=== PATIENT | female | born 1990 | race American Indian/Alaskan Native ===

== ENCOUNTER 2019-05-31 21:24 | Inpatient (IN) | payer MEDICAID ==
--- NOTE | 2019-05-31 21:56 | History and Physical Report ---
History of Present Illness Date of examination: 05/31/19 Date of admission: 05/31/19 21:36 Chief complaint: arrived in active labor, 9cms History of present illness: prev c/s x 2, 2015 and 2017, scheduled for repeat c/s @ [facility] 06/05/19 denies medical problems Surgical hx: c/s 2016 - twins & 2018 - scheduled repeat denies etoh/drugs/smoking pt denies STI or abnormal pap pt has limited records and H&H for surgery - records state HSV2 and GBS + Past History Past Medical History: no pertinent history Past Surgical History: section (x2) INSTRUMENT TECHNOLOGIST History: herpes (denies recent or current outbreak). denies: cancer, chlamydia, fibroids, gonorrhea, hepatitis B, hepatitis C, HIV, syphilis, trichomonas Social history: no significant social history - Obstetrical History Expected Date of Delivery: 06/06/19 Actual Gestation: 39 Week(s) 1 Day(s) : 3 Para: 2 Hx # Term Pregnancies: 1 Number of Pregnancies: 1 Spontaneous Abortions: 0 Induced : 0 Number of Living Children: 3 Review of Systems All systems: negative - Physical Exam Breasts: Positive: normal Cardiovascular: Regular rate Lungs: Positive: Clear to auscultation, Normal air movement Abdomen: Positive: normal appearance, soft Genitourinary (Female): Positive: normal external genitalia (no HSV lesion) Vulva: both: normal Vagina: Positive: normal moisture Results All other labs normal. Assessment and Plan pt arrived to hospital 9cms and pushing, admission orders in EMR. Dr. Bacon made aware - Patient Problems (1) 39 weeks gestation of Current Visit: Yes Status: Acute (2) HSV-2 (herpes simplex virus 2) infection Current Visit: Yes Status: Acute Plan to address problem: no lesion noted (3) Previous section Current Visit: Yes Status: Acute
[2019-05-31] MEDS ORDERED: ACETAMINOPHEN 325 MG TAB PO PRN (21:59)
[2019-05-31] MEDS ORDERED: WITCH HAZEL/ GLYCERIN PAD TP PRN (21:59)
[2019-05-31] MEDS ORDERED: ONDANSETRON 4 MG/2 ML INJ IV PRN (21:59)
[2019-05-31] MEDS ORDERED: MAGNESIUM HYDROXIDE (MOM) ORAL LIQD UDC PO PRN (21:59)
[2019-05-31] MEDS ORDERED: LANOLIN/ZINC/DIMETHICONE (LANSINOH) 7 GM TP PRN (21:59)
[2019-05-31] MEDS ORDERED: BENZOCAINE/MENTHOL 20/0.5% TOP SPRAY 56 GM TP PRN (21:59)
[2019-05-31] MEDS ORDERED: diphenhydrAMINE 25 MG CAP PO PRN (21:59)
[2019-05-31] MEDS ORDERED: PROMETHAZINE 25 MG TAB PO PRN (21:59)
[2019-05-31] MEDS ORDERED: LACTATED RINGERS 1,000 ML IV SCH (22:00)
[2019-05-31] MEDS ORDERED: OXYTOCIN 20 UNIT/1000ML DRIP 20 UNITS/1,000 ML BAG IV SCH ×2 (22:00)
--- NOTE | 2019-05-31 22:05 | Procedure Note ---
OB Delivery Note - Delivery Date of Delivery: 05/31/19 ( ) Coarse Wire Drawer: JEFF MENDOZA Estimated blood loss: 200cc - Vaginal Delivery presentation: vertex Intrapartum events: other(please specify) (prev c/s, unplanned ) Delivery induction: none Delivery monitor: external FHT, external uterine Route of delivery: Delivery placenta: spontaneous Delivery cord: 3 umbilical vessels Episiotomy: none Delivery laceration: none Anesthesia: none Delivery comments: pt spontaneously pushed female out shortly after arrival to hospital. CNCarlita Tiwari present. no lacerations. Placenta del intact and complete. apgars 8/9, weight 6#1oz. fundus firm, lochia scant. VSSAF. mother and infant LDR stable. Dr. Bacon made aware of patient's status. - Infant A at 1 minute: 8 at 5 minutes: 9 Gender: Female (6#1oz)
[2019-05-31] MEDS: IBUPROFEN 800 MG TAB PO SCH (22:24)
[2019-05-31 23:46] LABS: Hematocrit 35.7 % (30.3-42.9); Hemoglobin 11.8 gm/dl (10.1-14.3); Mean Corpuscular HGB Conc 33 % (30-34); Mean Corpuscular Volume 81 fl (79-97); Platelet Count 173 K/mm3 (140-440); Red Blood Count 4.41 M/mm3 (3.65-5.03); Red Cell Distribution Width 15.1 % (13.2-15.2)
--- NOTE | 2019-06-01 06:34 | Progress Note ---
Assessment and Plan pt sleeping No c/o voiced. VSS FF below umb Lochia small Perineum intact. H&H pending. Doing well s/p vag delivery-unintentional after 2 previous c/s P: continue pathway Advance as tolerated. Subjective - Subjective Date of service: 06/01/19 (pt in good spirits) Principal diagnosis: Prev c/s X 2 Day #1 Patient reports: appetite normal, voiding normally, pain well controlled, ambulating normally [place]: doing well Objective - Vital Signs Latest vital signs: Vital Signs Temp Pulse Resp BP Pulse Ox 06/01/19 00:08 98.9 F 78 18 116/70 98 05/31/19 23:24 18 05/31/19 22:43 93 H 125/74 05/31/19 22:28 90 111/73 05/31/19 22:13 98 H 111/63 05/31/19 21:59 87 119/59 05/31/19 21:40 97.8 F Intake and Output 05/31/19 05/31/19 06/01/19 14:59 22:59 06:59 Intake Total 240 Output Total 400 Balance -160 Intake: Oral 240 Output: Urine 400 Void 400 Other: Total, Intake Amount 240 Total, Output Amount 400 # Voids Void 1 Weight 181 lb Estimated Blood Loss 200 Patient Weight 06/01/19 06:59 Weight 181 lb - Exam Breasts: Present: normal Cardiovascular: Present: Regular rate Lungs: Present: Normal air movement Abdomen: Present: normal appearance, soft, normal bowel sounds Uterus: Present: normal, fundal height below umbilicus Extremities: Present: normal Deep Tendon Reflex Grade: Normal +2 Incision: Present: normal, dry, intact - Labs Labs: Abnormal lab results 05/31/19 Range/Units 23:28 WBC 15.1 H (4.5-11.0) K/mm3 MCH 27 L (28-32) pg
[2019-06-01] MEDS: PRENATAL VIT27-FE FUMARATE-FOLIC ACID VIT TAB PO SCH (09:55)
[2019-06-01] MEDS: FERROUS SULFATE 325 MG TAB PO SCH ×2 (09:56→22:11)
[2019-06-01 10:41] LABS: Hematocrit 30.8 % (30.3-42.9); Hemoglobin 10.2 gm/dl (10.1-14.3)
[2019-06-01] MEDS: IBUPROFEN 800 MG TAB PO SCH ×2 (11:10→17:41)
[2019-06-01] MEDS ORDERED: medroxyPROGESTERone ACETATE 150 MG/ML SYRINGE IM ONE (11:12)
[2019-06-02] MEDS: IBUPROFEN 800 MG TAB PO SCH ×2 (05:32→10:32)
[2019-06-02] MEDS ORDERED: TETANUS,DIPH,PERTUSS(ACELL) VACCINE 0.5 ML SYRINGE IM ONE (06:00)
--- NOTE | 2019-06-02 07:45 | Discharge Summary ---
Providers - Providers Date of Admission: 05/31/19 21:36 Date of discharge: 06/02/19 (Pt desires to go home.) Attending physician: BEV LIAO Primary care physician: BEV LIAO Hospitalization Reason for admission: active labor Delivery: Episiotomy: none Laceration: none Other procedures: none complications: none Discharge diagnosis: IUP at term delivered Graham baby: female Hospital course: S:Doing well. Ambulating, passing flatus, and voiding okay. States minimal pain and bleeding. Would like Depo before discharge home, it is ordered. O: VSS, Adequate I&O;s. H/H 10.2/30.8. Minimal bleeding, fundus firm. A: 29 y.o. S/p @ term, walk in pt P: Discharge home with instructions. Follow up with primary care OB in 4 weeks. Condition at discharge: Good Disposition: DC-01 TO HOME OR SELFCARE Plan - Provider Discharge Summary Activity: routine, no sex for 6 weeks, no heavy lifting 4 weeks, no strenuous exercise Diet: routine Instructions: routine Additional instructions: [] Smoking cessation referral if applicable(refer to patient education folder for contact #) [] Refer to [facility]'s [facility] Booklet Call your doctor immediately for: * Fever > 100.5 * Heavy vaginal bleeding ( >1 pad per hour) * Severe persistent headache * Shortness of breath * Reddened, hot, painful area to leg or breast * Drainage or odor from incision. * Keep incision clean and dry at all times and follow doctor's instructions regarding bathing/showering - Follow up plan Follow up: BEV LIAO MD [Primary Care Provider] - 7 Days (Congratulations!!! Please follow up with your primary OB in 4 weeks. If you would like to follow up with [facility] our number [phone].)
[2019-06-02] MEDS: PRENATAL VIT27-FE FUMARATE-FOLIC ACID VIT TAB PO SCH (10:33)
[2019-06-02] MEDS: FERROUS SULFATE 325 MG TAB PO SCH (10:33)
[2019-06-02] MEDS ORDERED: medroxyPROGESTERone ACETATE 150 MG/ML SYRINGE IM SCH (14:30)
[2019-06-02 15:12] VITALS: BP 103/61
== END 2019-06-02 15:00 | disposition home or self-care (01) | DRG 774 ==
LOC: TRG 21:24 → LD 21:36 → OB 06-01 00:26
PROVIDERS: ADMIT Obstetrics & Gynecology; ATTEND Obstetrics & Gynecology
PROC: 10E0XZZ Delivery of Products of Conception, External Approach (ICD-10-PCS; principal; 2019-05-31)
PROC: 3E0234Z Introduction of Serum, Toxoid and Vaccine into Muscle, Percutaneous Approach (ICD-10-PCS; 2019-06-02)
DX: O99.824 Streptococcus B carrier state complicating childbirth (principal); O98.52 Other viral diseases complicating childbirth; B00.9 Herpesviral infection, unspecified; Z3A.39 39 weeks gestation of pregnancy; Z37.0 Single live birth; Z23 Encounter for immunization
CPT/HCPCS: 36415; 85014; 85018; 85027; 86592; 86706; 86762; 86850; 86900; 86901; 87806; 88307; G0378; J1050; J2590

== ENCOUNTER 2021-04-05 05:29 | Inpatient (IN) | payer MEDICAID ==
[2021-04-05] MEDS ORDERED: LIDOCAINE (2%) 20 MG/1 ML VIAL 20 ML MDV INFILTRATI NR (09:22)
[2021-04-05] MEDS ORDERED: ePHEDrine SULFATE 50 MG/1 ML INJ IV PRN (10:00)
[2021-04-05] MEDS ORDERED: NalbUPHINE 10 MG/1 ML INJ IV PRN (10:00)
[2021-04-05] MEDS ORDERED: ACETAMINOPHEN 325 MG TAB PO PRN (10:00)
[2021-04-05] MEDS ORDERED: METHYLERGONOVINE MALEATE 0.2 MG/ML VIAL IM PRN (10:00)
[2021-04-05] MEDS ORDERED: CARBOPROST TROMETHAMINE 250 MCG/1 ML INJ IM PRN (10:00)
[2021-04-05] MEDS ORDERED: miSOPROStol 200 MCG TAB PR PRN (10:00)
[2021-04-05] MEDS ORDERED: TERBUTALINE 1 MG/1 ML INJ SUB-Q PRN (10:00)
[2021-04-05] MEDS ORDERED: PROMETHAZINE 25 MG TAB PO PRN ×2 (10:00→17:43)
[2021-04-05] MEDS ORDERED: LACTATED RINGERS 1,000 ML IV SCH (10:00)
[2021-04-05] MEDS ORDERED: LOPERAMIDE 2 MG CAP PO PRN (10:00)
[2021-04-05] MEDS ORDERED: AMPICILLIN/NS 2 GM/100 ML 2 GM/100 ML BAG IV ONE (10:00)
[2021-04-05] MEDS ORDERED: ONDANSETRON 4 MG/2 ML INJ IV PRN ×2 (10:00→17:43)
[2021-04-05] MEDS ORDERED: fentaNYL 100 MCG/2 ML INJ IV PRN (10:00)
[2021-04-05] MEDS ORDERED: OXYTOCIN DRIP 30 UNITS/500 ML BAG IV SCH ×2 (10:00)
[2021-04-05] MEDS ORDERED: OXYTOCIN 10 UNIT/1 ML INJ IM PRN (10:00)
[2021-04-05 10:02] LABS: Hematocrit 37.8 % (30.3-42.9); Hemoglobin 12.2 gm/dl (10.1-14.3); Mean Corpuscular HGB Conc 32 % (30-34); Mean Corpuscular Volume 80 fl (79-97); Platelet Count 165 K/mm3 (140-440); Red Blood Count 4.74 M/mm3 (3.65-5.03); Red Cell Distribution Width 16.6 % (13.2-15.2)
--- NOTE | 2021-04-05 10:03 | History and Physical Report ---
History of Present Illness Date of examination: 04/05/21 Date of admission: at 39.5wks by LMP c/w U/S. care at [facility]. PT admit to feeling ctx, denies LOF, VB or headache. pt admits to movement. pt states she had a successful after her last c/section and wants TOLAC. Chief complaint: 04/07/21 History of present illness: at 39.5wkw by LMP c/w U/S. care at [facility]. PT c/o contrations, admits to movement. Denies headache, LOF or VB. Desires TOLAC. labs with A positive, neg antibody screen, RPR neg, HepBsAg neg, Rubella immnue, and HIV neg. HSVII neg; GBS+ Past History Past Medical History: other (Alpha thalassemia carrier, headaches) Past Surgical History: section (x2) Social history: no significant social history - Obstetrical History Expected Date of Delivery: 04/07/21 Actual Gestation: 39 Week(s) 5 Day(s) : 4 Hx # Term Pregnancies: 3 (c/s x2 then in 2019) Number of Living Children: 3 Medications and Allergies Allergies Allergy/AdvReac Type Severity Reaction Status Date / Time No Known Allergies Allergy Verified 05/31/19 22:18 Home Medications Medication Instructions Recorded Confirmed Last Taken Type Ferrous Sulfate [Feosol] 325 mg PO BID 05/31/19 04/05/21 04/04/21 10:00 History Vit-Fe Fumar-FA [ 1 tab PO QDAY 05/31/19 04/05/21 04/04/21 20:00 History Vitamin] Acyclovir 1 tab PO BID 04/05/21 04/05/21 04/04/21 20:00 History Active Meds: Active Medications Acetaminophen (Acetaminophen 325 Mg Tab) 650 mg PO Q4H PRN PRN Reason: Pain, Mild (1-3) Carboprost Tromethamine (Carboprost Tromethamine 250 Mcg/1 Ml Inj) 250 mcg IM ONCE PRN PRN Reason: Uterine Bleeding Ephedrine Sulfate (Ephedrine Sulfate 50 Mg/1 Ml Inj) 10 mg IV Q2M PRN PRN Reason: Hypotension Fentanyl (Fentanyl 100 Mcg/2 Ml Inj) 100 mcg IV Q2H PRN PRN Reason: Pain,Severe (7-10) LABOR PAIN Oxytocin/Sodium Chloride (Pitocin/Ns 30 Unit/500ml) 30 units in 500 mls @ 2 mls/hr IV TITR IAN; Protocol Lactated Ringer's (Lactated Ringers) 1,000 mls @ 125 mls/hr IV DIRECT IAN Oxytocin/Sodium Chloride (Pitocin/Ns 30 Unit/500ml) 30 units in 500 mls @ 40 mls/hr IV TITR IAN; Protocol Ampicillin Sodium (Ampicillin/Ns 2 Gm/100 Ml) 2 gm in 100 mls @ 100 mls/hr IV ONCE ONE; Protocol Stop: 04/05/21 10:21 Lidocaine (Lidocaine (2%) 20 Mg/1 Ml Vial 20 Ml Mdv) 20 ml INFILTRATI ONCE ONE Stop: 04/05/21 09:23 Loperamide HCl (Loperamide 2 Mg Cap) 2 mg PO ONCE PRN PRN Reason: give with Hemabate Methylergonovine Maleate (Methylergonovine Maleate 0.2 Mg/Ml Vial) 0.2 mg IM ONCE PRN PRN Reason: Uterine Bleeding Mineral Oil (Mineral Oil 30 Ml Oral Liqd) 30 ml PO QHS PRN PRN Reason: Constipation Misoprostol (Misoprostol 200 Mcg Tab) 800 mcg TN ONCE PRN PRN Reason: Uterine Bleeding Nalbuphine HCl (Nalbuphine 10 Mg/1 Ml Inj) 10 mg IV Q2H PRN PRN Reason: Pain, Moderate (4-6) Ondansetron HCl (Ondansetron 4 Mg/2 Ml Inj) 4 mg IV Q8H PRN PRN Reason: Nausea And Vomiting Oxytocin (Oxytocin 10 Unit/1 Ml Inj) 10 unit IM ONCE PRN PRN Reason: Uterine Bleeding Promethazine HCl (Promethazine 25 Mg Tab) 25 mg PO Q6H PRN PRN Reason: Nausea And Vomiting Terbutaline Sulfate (Terbutaline 1 Mg/1 Ml Inj) 0.25 mg SUB-Q ONCE PRN PRN Reason: Hyperstimulation/Hypertonicity Review of Systems All systems: negative (ctx) - Vital Signs Vital signs: Vital Signs Pulse BP 88 117/72 04/05/21 06:32 04/05/21 06:32 Temp Pulse Resp BP Pulse Ox 88 117/72 04/05/21 06:32 04/05/21 06:32 - Physical Exam Breasts: Positive: deferred Cardiovascular: Regular rate Lungs: Positive: Normal air movement Abdomen: Positive: soft Vulva: right: lichenification (white discoloration without tenderness), left: normal Vagina: Positive: normal moisture Uterus: Positive: enlarged (non-tender, gravid) Extremities: Positive: normal - Obstetrical FHR: category 1 Uterine Contraction Monitor Mode: External Cervical Dilatation: 4 (by triage nurse) Cervical Effacement Percentage: 80 station: -1 Uterine Contraction Pattern: Irregular Uterine Contraction Intensity: Mild Results Result Diagrams: 04/05/21 09:40 All other labs normal. Assessment and Plan Term preg with previous c/s x2 then successful and pt desires TOLAC; GBS positive from records; Alpha thal carrier 1. Admit to labor and delivery and obtain consents for TOLAC, pt aware of risks, benefits and alternatives of TOLAC and if same unsuccessful then repeat c/section to be done 2. will give amp abx and records later obtained confirm GBS+ 3. may have IV pain med or epidural when desired 4. Will augment labor with pitocin 5. Hopeful for successful All questions encouraged and answered
[2021-04-05] MEDS ORDERED: LIDOCAINE (2%) 20 MG/1 ML VIAL 20 ML MDV INFILTRATI ONE (16:17)
--- NOTE | 2021-04-05 16:44 | Event Note ---
Date: 04/05/21 LATE ENTRY:nurse called me at 12:40pm with pt complete with bulging bag pushing and epidural personnel stopped. AROM Done and same clear. Pt still not bearing down well. No epidural given. FHR category I. Pt with ctx every 3-6mins and on pitocin at 2mu/min. Will give IV pain med since pt unable to get epidural. Pt allowed to push several times. Will allow to labor down. Expect
--- NOTE | 2021-04-05 16:55 | Procedure Note ---
OB Delivery Note - Delivery Date of Delivery: 04/05/21 Surgeon: ELIF ARCE Estimated blood loss: 200cc - Vaginal Delivery presentation: vertex Delivery position: OA Delivery induction: none Delivery augmentation: rupture of membranes, pitocin Delivery monitor: external FHT, external uterine Route of delivery: Delivery placenta: spontaneous Delivery cord: 3 umbilical vessels Episiotomy: none Delivery laceration: 1st degree (bilateral labial laceration) Delivery repair: chromic Anesthesia: local Delivery comments: Successful of viable male by nurse to bedside uncomplicated and spontaneous delivery of placenta. Bimanual by me expressed additional clots and bilateral periurethral lacerations noted and fundus firm with pitocin in progress. At this time as well was a left labial fistula was noted and pt states her laceration from the previous delivery was left to heal by itself. Pt offered repair of her current lacerations for which she accepted. Lidocaine 1% plain used for local anesthesia and same repaired with running locked chromic suture to right and left periurethra with excellent hemostasis. Mom and baby stable. - A at 1 minute: 8 at 5 minutes: 9 Infant Gender: Male (clear amniotic fluid; wt 3020g)
[2021-04-05] MEDS ORDERED: LANOLIN/ZINC/DIMETHICONE (LANSINOH) 7 GM TP PRN (17:43)
[2021-04-05] MEDS ORDERED: diphenhydrAMINE 25 MG CAP PO PRN (17:43)
[2021-04-05] MEDS ORDERED: PROMETHAZINE 25 MG RECT SUPP PR PRN (17:43)
[2021-04-05] MEDS ORDERED: MAGNESIUM HYDROXIDE (MOM) ORAL LIQD UDC PO PRN (17:43)
[2021-04-05] MEDS ORDERED: WITCH HAZEL/ GLYCERIN PAD TP PRN (17:43)
[2021-04-05] MEDS: IBUPROFEN 600 MG TAB PO SCH (17:55)
[2021-04-05] MEDS: oxyCODONE /ACETAMINOPHEN 5-325MG TAB PO PRN (20:53)
[2021-04-05] MEDS ORDERED: MINERAL OIL 30 ML ORAL LIQD PO PRN (22:00)
[2021-04-06] MEDS: IBUPROFEN 600 MG TAB PO SCH ×3 (00:35→20:06)
[2021-04-06 05:59] LABS: Hematocrit 32.1 % (30.3-42.9)
[2021-04-06] MEDS: oxyCODONE /ACETAMINOPHEN 5-325MG TAB PO PRN (06:13)
[2021-04-06] MEDS: PRENATAL VIT27-FE FUMARATE-FOLIC ACID VIT TAB PO SCH (10:14)
--- NOTE | 2021-04-06 14:43 | Progress Note ---
Assessment and Plan #1 doing well 1. Routine PP care 2. Baby on hold for 48hrs per nurse All questions encouraged and answered. Subjective Date of service: 04/06/21 Principal diagnosis: Successful #1 Interval history: pt has no complaints. Vag bleed minimal, plans to breast feed at home but no milk present now and states this happened with her last child until she got home one week later. pt is voiding without difficulty. Objective - Constitutional Vitals: Vital Signs - 12hr 04/06/21 04/06/21 04/06/21 06:13 07:36 08:30 Temperature 97.9 F Pulse Rate 68 Respiratory 18 16 Rate Blood Pressure 107/71 O2 Sat by Pulse 96 Oximetry O2 Sat by Pulse 100 Oximetry [ Bilateral] 04/06/21 11:58 Temperature 98.1 F Pulse Rate 71 Respiratory 16 Rate Blood Pressure 114/74 O2 Sat by Pulse 100 Oximetry O2 Sat by Pulse Oximetry [ Bilateral] General appearance: Present: no acute distress - Neck Neck: normal ROM - Respiratory Respiratory effort: normal - Breasts Breasts: deferred - Cardiovascular Rhythm: regular Extremities: No edema - Gastrointestinal General gastrointestinal: Present: soft - Genitourinary Female genitourinary: other (Fundus firm 2cm below umbilicus and non-tender; lochia scant) - Labs CBC & Chem 7: 04/06/21 05:24 Labs: Abnormal lab results 04/06/21 Range/Units 05:24 Hgb 10.0 L (10.1-14.3) gm/dl Medications & Allergies - Medications Allergies/Adverse Reactions: Allergies No Known Allergies Allergy (Verified 05/31/19 22:18) Home Medications: Home Medications Medication Instructions Recorded Confirmed Last Taken Type Ferrous Sulfate [Feosol] 325 mg PO BID 05/31/19 04/05/21 04/04/21 10:00 History Vit-Fe Fumar-FA [ 1 tab PO QDAY 05/31/19 04/05/21 04/04/21 20:00 History Vitamin] Acyclovir 1 tab PO BID 04/05/21 04/05/21 04/04/21 20:00 History Active Medications: Generic Name Dose Route Start Last Admin Trade Name Freq PRN Reason Stop Dose Admin Acetaminophen 650 mg 04/05/21 10:00 Acetaminophen 325 Mg Tab PO Q4H PRN Pain, Mild (1-3) Bisacodyl 10 mg 04/05/21 17:43 Bisacodyl 10 Mg Rect Supp LA BID PRN Constipation Carboprost Tromethamine 250 mcg 04/05/21 10:00 Carboprost Tromethamine 250 Mcg/1 Ml Inj IM ONCE PRN Uterine Bleeding Diphenhydramine HCl 25 mg 04/05/21 17:43 Diphenhydramine 25 Mg Cap PO Q6H PRN Itching Oxytocin/Sodium Chloride 30 units in 500 mls @ 2 mls/hr 04/05/21 10:00 04/05/21 11:45 Pitocin/Ns 30 Unit/500ml IV 2 ml/hr TITR IAN 2 mls/hr Administration Protocol Lactated Ringer's 1,000 mls @ 125 mls/hr 04/05/21 10:00 04/05/21 10:10 Lactated Ringers IV 125 mls/hr DIRECT IAN Administration Oxytocin/Sodium Chloride 30 units in 500 mls @ 40 mls/hr 04/05/21 10:00 Pitocin/Ns 30 Unit/500ml IV TITR IAN Protocol Ibuprofen 600 mg 04/05/21 17:43 04/06/21 13:05 Ibuprofen 600 Mg Tab PO 600 mg Q6H IAN Administration Loperamide HCl 2 mg 04/05/21 10:00 Loperamide 2 Mg Cap PO ONCE PRN give with Hemabate Magnesium Hydroxide 30 ml 04/05/21 17:43 Magnesium Hydroxide (Mom) Oral Liqd Udc PO HS PRN Constipation Methylergonovine Maleate 0.2 mg 04/05/21 10:00 Methylergonovine Maleate 0.2 Mg/Ml Vial IM ONCE PRN Uterine Bleeding Mineral Oil 30 ml 04/05/21 22:00 Mineral Oil 30 Ml Oral Liqd PO QHS PRN Constipation Misoprostol 800 mcg 04/05/21 10:00 Misoprostol 200 Mcg Tab LA ONCE PRN Uterine Bleeding Multi-Ingredient Ointment 1 applic 04/05/21 17:43 Lanolin/Zinc/Dimethicone (Lansinoh) 7 Gm TP PRN PRN Sore Nipples Multivitamins/Iron/Calcium 1 each 04/06/21 10:00 04/06/21 10:14 Ohl19-Fs Fumarate-Folic Acid Vit Tab PO 1 each QDAY IAN Administration Ondansetron HCl 4 mg 04/05/21 17:43 Ondansetron 4 Mg/2 Ml Inj IV Q8H PRN Nausea And Vomiting Oxycodone/Acetaminophen 1 tab 04/05/21 17:43 04/06/21 06:13 Oxycodone /Acetaminophen 5-325mg Tab PO 1 tab Q6H PRN Administration Pain, Moderate (4-6) Oxytocin 10 unit 04/05/21 10:00 Oxytocin 10 Unit/1 Ml Inj IM ONCE PRN Uterine Bleeding Promethazine HCl 25 mg 04/05/21 17:43 Promethazine 25 Mg Rect Supp LA Q6H PRN Nausea And Vomiting Promethazine HCl 25 mg 04/05/21 17:43 Promethazine 25 Mg Tab PO Q6H PRN Nausea And Vomiting Sodium Chloride 10 ml 04/05/21 17:43 Sodium Chloride 0.9% 10 Ml Flush Syringe IV PRN IAN Witch Iesha/Glycerin 1 each 04/05/21 17:43 04/05/21 20:44 Witch Iesha/ Glycerin Pad TP 1 each PRN PRN Administration Hemorrhoid/cleansing/soothing
[2021-04-07] MEDS: IBUPROFEN 600 MG TAB PO SCH (03:06)
--- NOTE | 2021-04-07 09:47 | Progress Note ---
Assessment and Plan A: day 2 S/P (successful ). Anemia. P: Discharge patient home today. Discussed with patient discharge instructions and warning signs. Advised patient to continue taking her vitamin and iron supplements at home. Advised patient to avoid intercourse, lifting, and heavy housework. Advised patient to follow up at [facility] office in 2 weeks. Patient voiced understanding of all instructions. Subjective - Subjective Date of service: 04/07/21 Principal diagnosis: Successful #2 Interval history: Patient desires discharge home today. Patient reports: appetite normal, voiding normally, pain well controlled, flatus, ambulating normally, no dizzy ambulation, no nauseated : doing well Objective - Vital Signs Latest vital signs: Vital Signs Temp Pulse Resp BP Pulse Ox Pulse Ox 04/07/21 08:50 100 04/07/21 08:14 98.0 F 71 20 129/64 100 04/07/21 03:06 18 04/06/21 20:10 100 04/06/21 20:06 18 04/06/21 15:32 98.1 F 86 20 108/71 99 04/06/21 11:58 98.1 F 71 16 114/74 100 Intake and Output 04/06/21 04/07/21 04/07/21 23:59 07:59 15:59 Intake Total 540 300 Balance 540 300 Intake: Oral 240 300 Intake, Free Water 300 Other: Total, Intake Amount 240 100 # Voids Void 1 1 - Exam Cardiovascular: Present: Regular rate, No murmurs Lungs: Present: Clear to auscultation Abdomen: Present: normal appearance, soft, normal bowel sounds. Absent: distention, tenderness, guarding, rigidity Uterus: Present: normal, firm, fundal height below umbilicus. Absent: bogginess, tenderness Extremities: Present: normal. Absent: tenderness, edema
[2021-04-07] MEDS: PRENATAL VIT27-FE FUMARATE-FOLIC ACID VIT TAB PO SCH (10:13)
--- NOTE | 2021-04-07 10:23 | Discharge Summary ---
Providers - Providers Date of Admission: 04/05/21 12:41 Date of discharge: 04/07/21 Attending physician: ELIF ARCE Primary care physician: ELIF ARCE Hospitalization Reason for admission: active labor Delivery: Laceration: 1st degree Other procedures: none complications: none baby: male Pertinent studies: Labs Hospital course: Stable hospital course. Condition at discharge: Good Disposition: 01 HOME / SELF CARE / HOMELESS - Discharge Diagnoses (1) Term delivered Status: Acute Plan - Provider Discharge Summary Activity: routine, no sex for 6 weeks, no heavy lifting 4 weeks, no strenuous exercise Diet: routine Instructions: routine Additional instructions: Continue taking your vitamin and iron supplements at home. Follow up at [facility] in 2 weeks. Call your doctor immediately for: * Fever > 100.5 * Heavy vaginal bleeding ( >1 pad per hour) * Severe persistent headache * Shortness of breath * Reddened, hot, painful area to leg or breast - Follow up plan Follow up: JOE BOJORQUEZ CNM [Advanced Practice Nurse] - 14 Days
[2021-04-07 15:42] VITALS: BP 128/65
== END 2021-04-07 16:06 | disposition home or self-care (01) | DRG 775 ==
LOC: TRG 05:29 → APU 05:39 → LD 09:09 → TRG 12:40 → LD 12:41 → OB 17:29
PROVIDERS: ADMIT Obstetrics & Gynecology; ATTEND Obstetrics & Gynecology
PROC: 10E0XZZ Delivery of Products of Conception, External Approach (ICD-10-PCS; principal; 2021-04-05)
PROC: 10907ZC Drainage of Amniotic Fluid, Therapeutic from Products of Conception, Via Natural or Artificial Opening (ICD-10-PCS; 2021-04-05)
PROC: 0UQMXZZ Repair Vulva, External Approach (ICD-10-PCS; 2021-04-05)
DX: O34.211 Maternal care for low transverse scar from previous cesarean delivery (principal); Z3A.39 39 weeks gestation of pregnancy; Z37.0 Single live birth; D56.3 Thalassemia minor; Z20.822 Contact with and (suspected) exposure to COVID-19; O99.824 Streptococcus B carrier state complicating childbirth; O70.0 First degree perineal laceration during delivery; O99.02 Anemia complicating childbirth
CPT/HCPCS: 36415; 85014; 85018; 85027; 86592; 86850; 86900; 86901; G0378; J0290; J2590; J7120; U0003